=== PATIENT | female | born 1950 | race Caucasian/White ===

== ENCOUNTER → 2018-11-05 | Outpatient (CLI) | payer MEDICARE, OTHER ==
--- NOTE | 2018-11-05 14:46 | Diagnostic Imaging Report ---
INDICATION: Right knee pain AP, oblique, and lateral views of the right knee are obtained. No fracture or acute bony abnormality seen. There is minimal patellofemoral spurring and mild medial joint space narrowing with osteophyte formation. There is no acute appearing bony abnormality. There is no overt joint effusion. IMPRESSION: Mild degenerative findings as described above with no acute bony abnormality. Dictated by: Dictated on workstation # [id number]
== END ==
LOC: RAD FS 14:05
PROVIDERS: ATTEND Nurse Practitioner Family
DX: M25.761 Osteophyte, right knee (principal); M17.11 Unilateral primary osteoarthritis, right knee
CPT/HCPCS: 73562

== ENCOUNTER → 2018-12-25 | Outpatient (CLI) | payer MEDICARE, OTHER ==
--- NOTE | 2018-12-25 16:52 | Diagnostic Imaging Report ---
INDICATION: Right knee pain. TECHNIQUE: MRI of the right knee was obtained without IV contrast. COMPARISON: There is no previous study for comparison. FINDINGS: There is a moderate-sized knee joint effusion. There is a Sotomayor's cyst posteriorly measuring about 5.1 x 1.9 cm. The medial collateral and lateral collateral ligaments appear intact. The anterior cruciate and posterior cruciate ligaments are intact. There are linear areas of signal abnormality in the posterior horn of the medial and lateral menisci, suspicious for meniscal tears. There is some edema in the lateral femoral condyle anteriorly. There is diffuse soft tissue edema. There is patellofemoral spurring and chondromalacia of the patella. IMPRESSION: Evidence of joint effusion with a Sotomayor's cyst posteriorly as above. There appear to be faint tears of the posterior horns of the medial and lateral menisci. There are underlying degenerative changes. There is marrow edema in the lateral femoral condyle. There is no evidence of cruciate ligament tear. 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 Dictated by: Dictated on workstation # [id number]
== END ==
LOC: RAD 12:09
PROVIDERS: ATTEND Orthopaedic Surgery
DX: M22.41 Chondromalacia patellae, right knee (principal); M71.21 Synovial cyst of popliteal space [Baker], right knee; M17.11 Unilateral primary osteoarthritis, right knee; M89.9 Disorder of bone, unspecified
CPT/HCPCS: 73721

== ENCOUNTER → 2019-02-14 | Outpatient (CLI) | payer MEDICARE, OTHER ==
--- NOTE | 2019-02-14 15:07 | Diagnostic Imaging Report ---
INDICATION: 72-50-yuow-year history of smoking. COMPARISON: None. TECHNIQUE: Noncontrast low-dose CT of the chest was performed per departmental protocol for screening purposes. Auto Exposure Controls were utilized during the CT exam to meet ALARA standards for radiation dose reduction. FINDINGS: Evaluation of the lung lugo shows faint 4-5 mm micronodular density within the anterior margins of the left upper lobe (image 58, series 2). No other suspicious pulmonary nodules or masses are identified. There is background mild emphysematous disease predominantly in a subpleural distribution. Note is also made of coarse interstitial thickening within the lung bases. There is no focal consolidation, large effusion, nor pneumothorax. Cardiomediastinal structures show normal heart size. There is a large hiatal hernia. Note is made of moderate calcified coronary atherosclerosis. There are probable indwelling stents within the right coronary artery, although evaluation is obscured by motion artifact. Note is also made of moderate scattered calcified aortic atherosclerosis. There is no large pericardial effusion. No pathologically enlarged or morphologically abnormal adenopathy is seen within the mediastinum, bere, nor axilla on this noncontrast exam. Osseous structures show no acute abnormalities. No lytic or blastic bony lesions are seen. Included portions of the upper abdomen are unremarkable. IMPRESSION: 1. Punctate 4-5 mm micronodule within the left upper lobe. Continued followup with annual low-dose CT chest is recommended. 2. Background mild emphysematous disease. 3. Moderate calcified aortic and coronary atherosclerosis. 4. Large hiatal hernia. LUNG-RADS CATEGORY: 2-S. MODIFIERS: As above. Dictated by: Dictated on workstation # [id number]
== END ==
LOC: RAD 13:49
PROVIDERS: ATTEND Nurse Practitioner Family
DX: Z12.2 Encounter for screening for malignant neoplasm of respiratory organs (principal); J43.9 Emphysema, unspecified; I70.0 Atherosclerosis of aorta; I25.10 Atherosclerotic heart disease of native coronary artery without angina pectoris; R91.1 Solitary pulmonary nodule; K44.9 Diaphragmatic hernia without obstruction or gangrene; Z87.891 Personal history of nicotine dependence

== ENCOUNTER → 2019-04-04 | Outpatient (CLI) | payer MEDICARE, OTHER ==
--- NOTE | 2019-04-04 12:51 | Diagnostic Imaging Report ---
Indication: Preop screening Findings: There is cardiomegaly. The lungs are clear. There is no pleural effusion, pneumothorax or pneumonia. Mediastinum is unremarkable. Impression: No acute cardiopulmonary abnormality. Mild cardiomegaly. Dictated by: Dictated on workstation # [id number]
== END ==
LOC: RAD FS 10:31
PROVIDERS: ATTEND Nurse Practitioner Family
DX: Z01.818 Encounter for other preprocedural examination (principal)
CPT/HCPCS: 71046

== ENCOUNTER → 2020-02-25 | Outpatient (CLI) | payer MEDICARE, OTHER ==
--- NOTE | 2020-02-25 14:26 | Diagnostic Imaging Report ---
CT Lung Screening INDICATION:40 pack year smoking history. Quit smoking 10 years ago. TECHNIQUE: Noncontrast, low-dose CT imaging performed according to the lung cancer screening protocol. Auto Exposure Controls were utilize during the CT exam to meet ALARA standards for radiation dose reduction. COMPARISON:02/14/2019. FINDINGS:Moderate centrilobular emphysema. Scattered scarring and bronchiectasis. No endobronchial lesions. No new suspicious pulmonary nodule or mass. No pleural effusion or pneumothorax. Advanced atherosclerotic calcifications including coronary. Normal heart size. No pericardial effusion. No mediastinal, hilar or axillary lymphadenopathy is identified. Large esophageal hiatal hernia. No acute osseous findings. IMPRESSION: 1. No new suspicious pulmonary nodule or mass. Recommend follow-up with low-dose chest CT in 12 months. 2. Moderate emphysema. 3. Advanced atherosclerotic calcifications in the coronary arteries. 4. Large esophageal hiatal hernia. LUNG-RADS CATEGORY:1. MODIFIER:S. Dictated by: Dictated on workstation # [id number]
--- NOTE | 2020-02-25 16:18 | Diagnostic Imaging Report ---
INDICATION: Postmenopausal state COMPARISON: None available FINDINGS: AP Spine L1-L4: [BMD (g/cm2): 1.005] [T-Score: -1.6] [Z-Score: 0.2] [BMD Previous: NA] [BMD % Change: NA] LT Hip Neck: [BMD (g/cm2): 1.005] [T-Score: -0.2] [Z-Score: 1.6] LT Hip Total: [BMD (g/cm2):0.953] [T-Score:-0.4] [Z-Score: 1.2] [BMD Previous: NA] [BMD % Change: NA] RT Hip Neck: [BMD (g/cm2):0.830] [T-Score:-1.5] [Z-Score:0.3] RT Hip Total: [BMD (g/cm2):0.820] [T-score:-1.5] [Z-Score:0.1] [BMD Previous:NA] [BMD % Change:NA] *Indicates significant change from prior examination based on 95% confidence level. World Health Organization criteria for BMD interpretation classify patients as Normal (T-score at or above -1.0), Osteopenic (T-score between -1.0 and -2.5) or Osteoporotic (T-score at or below -2.5). LIMITATIONS AND MODIFICATION: None. FRACTURE RISK (FRAX SCORE): The ten year probability of (%): Major Osteoporotic Fracture: [12] Hip Fracture: [2.6] IMPRESSION: 1. Osteopenia (Low bone mass). 2. Baseline examination. 3. See below National Osteoporosis Foundation guidelines on when to potentially initiate pharmacologic therapy. Based on the National Osteoporosis Foundation Guidelines, pharmacologic treatment should be initiated in any of the following, unless clinical conditions suggest otherwise: * Any patient with prior fragility fracture of the hip or vertebrae. A spine fracture indicates 5X risk for subsequent spine fracture and 2X risk for subsequent hip fracture. * Osteoporosis (T-score <-2.5). * Postmenopausal women and men age 50 and older with low bone mass/osteopenia (T-score between -1.0 and -2.5) by DXA and 10-year major osteoporotic fracture greater than 20% or a 10-year probability of hip fracture greater than 3%. These fracture risks are supplied above in the FRAX score, if applicable. * Clinician judgement and/or patient preferences may indicate treatment for people with 10-year fracture probabilities above or below these levels. Dictated by: Dictated on workstation # [id number]
== END ==
LOC: RAD 12:56
PROVIDERS: ATTEND Nurse Practitioner Family
DX: Z12.2 Encounter for screening for malignant neoplasm of respiratory organs (principal); M85.80 Other specified disorders of bone density and structure, unspecified site; J43.9 Emphysema, unspecified; I25.10 Atherosclerotic heart disease of native coronary artery without angina pectoris; K44.9 Diaphragmatic hernia without obstruction or gangrene; Z78.0 Asymptomatic menopausal state; Z87.891 Personal history of nicotine dependence
CPT/HCPCS: 77080; G0297

== ENCOUNTER → 2021-02-25 | Outpatient (CLI) | payer MEDICARE, OTHER ==
--- NOTE | 2021-02-25 18:15 | Diagnostic Imaging Report ---
CT CHEST SCREENING WO TECHNIQUE: Low-dose CT of the chest without contrast according to the lung cancer screening protocol. INDICATION: 36-byda-zhyn history of smoking. Quit smoking 10 years ago. COMPARISON: Low-dose CT chest of 02/25/2020 FINDINGS: Pulmonary findings: No endoluminal nodule within the trachea. No pulmonary mass or consolidation. No suspicious pulmonary nodules have developed. There are new areas of subpleural fine reticulations in the bilateral lower lobes and middle lobe. Extrapulmonary findings: No mediastinal or axillary lymphadenopathy. No pericardial or pleural effusion. Severe coronary artery calcifications are unchanged. Large hiatal hernia is unchanged as well. No concerning focal osseous lesions. IMPRESSION: 1. No change to indicate clinically active lung cancer. 2. New areas of subtle pulmonary fibrosis within the mid and lower lung zones. Lung-RADS category: 1 - Negative Modifier: S-pulmonary fibrosis. Recommendations: 1. Continued screening with low-dose CT chest in 12 months. 3. Advise follow-up high-resolution CT chest in 3-6 months to reassess the developing pulmonary fibrosis. Dictated by: Dictated on workstation # [id number]
== END ==
LOC: RAD 13:11
PROVIDERS: ATTEND Nurse Practitioner Family
DX: J84.10 Pulmonary fibrosis, unspecified (principal); Z87.891 Personal history of nicotine dependence
CPT/HCPCS: 71271

== ENCOUNTER → 2021-09-15 | Outpatient (CLI) | payer MEDICARE, OTHER ==
--- NOTE | 2021-09-15 14:37 | Diagnostic Imaging Report ---
EXAMINATION: CT chest without contrast (high resolution) TECHNIQUE: Prone and supine non-contrast high resolution CT images of the chest were obtained in inspiration and expiration. All CT scans use one or more of the following dose optimizing techniques: automated exposure control, MA and/or KvP adjustment based on patient size and exam type or iterative reconstruction. HISTORY: Pulmonary fibrosis COMPARISON: None available. FINDINGS: There are mild nonspecific reticulations in the lung bases. No groundglass. No honeycombing. No architectural distortion. No bronchiectasis. There is no edema or pneumonia. No pleural effusion. No pneumothorax. No suspicious nodules. There is no axillary or supraclavicular lymphadenopathy. There is no mediastinal lymphadenopathy. Heart size is normal. There are moderate coronary artery calcifications. No pericardial effusion. Aorta is normal in caliber. There is a moderate-sized hiatal hernia. Limited views of the upper abdomen are unremarkable. There are no suspicious osseus lesions. IMPRESSION: 1. Mild nonspecific peripheral and basilar reticulations consistent with fibrosis. This may be due to prior infection, history of smoking or a fibrotic interstitial lung disease that is too mild to classify. Dictated by: Dictated on workstation # [id number]
== END ==
LOC: RAD FS 12:42
PROVIDERS: ATTEND Nurse Practitioner Family
DX: J84.10 Pulmonary fibrosis, unspecified (principal)
CPT/HCPCS: 71250

== ENCOUNTER → 2022-12-07 | Outpatient (CLI) | payer MEDICARE, OTHER ==
--- NOTE | 2022-12-07 16:39 | Diagnostic Imaging Report ---
CT CHEST SCREENING WO TECHNIQUE: Low-dose unenhanced CT of the chest was performed according to the screening protocol. Coronal MIP and sagittal MPR reformats are created. Automatic exposure controls were utilized to keep dose as low as reasonably achievable. INDICATION: 48 pack year history smoking. Quit smoking 11 years ago. COMPARISON: CT chest from 09/15/2021 FINDINGS: Pulmonary findings: No abnormality of the trachea. Mild paraseptal emphysema in the upper lobes is similar. Fine reticulations in the periphery of the lung bases have not changed. No suspicious pulmonary nodules. Extrapulmonary findings: No axillary or mediastinal lymphadenopathy. No pericardial or pleural effusion. Severe coronary artery calcifications are unchanged. Unchanged large hiatal hernia. Normal caliber thoracic aorta. IMPRESSION: 1. No change to indicate clinically active lung cancer. 2. Unchanged mild pulmonary fibrosis of unknown etiology. Lung-RADS category: 2 - Benign appearance or behavior Recommendations: Continued annual screening with low-dose CT in 12 months. Dictated by: Dictated on workstation # [id number]
== END ==
LOC: RAD 12:11
PROVIDERS: ATTEND Nurse Practitioner Family
DX: Z12.2 Encounter for screening for malignant neoplasm of respiratory organs (principal); Z87.891 Personal history of nicotine dependence
CPT/HCPCS: 71271